=== PATIENT | male | born 2000 | race Hispanic/Latino ===

== ENCOUNTER 2021-10-09 20:35 | Emergency (ER) | payer OTHER ==
[~2021-10-09] VITALS: Ht 176.5 cm; Wt 86.4 kg
[2021-10-09 21:02] VITALS: BP 140/90
== END 2021-10-09 22:46 | disposition home or self-care (01) ==
LOC: M ED 20:35
DX: S43.401A Unspecified sprain of right shoulder joint, initial encounter (principal); Y99.1 Military activity